=== PATIENT | male | born 2005 | race Caucasian/White ===

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

== ENCOUNTER 2023-01-13 05:44 | Day surgery (SDC) | payer MEDICAID, SELFPAY ==
[2023-01-10 11:45] VITALS: BMI 22.8
[2023-01-13] VITALS (11 sets, daily range): BP systolic 94–126; BP diastolic 50–74; PULSE 49–82; RESP 16–18; TEMP 36.3–36.6; O2SAT 97–100
--- OUTSIDE RECORDS SUMMARY | 2023-01-13 05:46 | XMS_ITS | Patient Health Record ---
Author Name Unknown Organization [facility] Address [address] [place] [address] Care Team Providers Care Assistant Clinical Director Name Role Phone Danial Amos Primary Care Provider ALLERGIES No Known Allergies REASON FOR REFERRAL No Information MEDICATIONS Medication SIG (Take, Route, Fr equency, Duration) Notes Start Date End Date Status oxyCODONE HCl 10 MG 1 tablet as needed O rally every 8 hrs for 2 days 12/07/2021 Active Peridex 0.12 % as directed Mouth/Th roat for 7 days 12/07/2021 Active SOCIAL HISTORY Sex Assigned At : Social History Observation Description Sex Assigned At Male PLAN OF TREATMENT No Information Insurance Providers Payer Name Payer Address Payer Phone Subscriber Number Group Number Insured Name Patient Relationship to Insured Coverage Start Date Coverage End Date [employer] [address] [address] [place] [phone] [id number] Darrel Mcrae Self - patient is the insured MEDICAL (GENERAL) HISTORY Medical History History ICD Code asthma
[2023-01-13] MEDS: sodium chloride 0.9% 1,000 ML 30 ML IV (06:07)
--- NOTE | 2023-01-13 07:00 | W.PM.OPSUD ---
Surgery/Procedure H&P Update DATE OF PROCEDURE: January 13, 2023 DATE H&P PERFORMED: 12/24/22 H&P UPDATE INFORMATION: I have reviewed H&P completed within last 30 days, I have examined patient prior to procedure and No changes to prior documentation PLANNED PROCEDURE: Operation Date: 01/13/23 07:00 Proposed Procedures p [id number] exicision of pilonidal cyst L05.01(Not Applicable) - Jose Javed DO
[2023-01-13] MEDS: ceFAZolin 2,000 MG in sodium chloride 0.9% (plus) 50 ML 100 MG IV (07:05)
[2023-01-13] MEDS: lidocaine-epi 2% 20 mL INJ INJECTION (07:38)
--- NOTE | 2023-01-13 07:57 | ANES.PREANE2 ---
Pre-Anesthetic Assessment Height/Weight: Height 1.75 m Weight 70.307 kg Temp Pulse Resp BP Pulse Ox O2 Del Method 97.6 F 53 L 17 126/70 99 Room Air 01/13/23 06:02 01/13/23 06:02 01/13/23 06:02 01/13/23 06:02 01/13/23 06:02 01/13/23 06:02 Operation Date: 01/13/23 07:00 Proposed Procedures p 61791 exicision of pilonidal cyst L05.01(Not Applicable) - Jose Javed DO Familial anesthetic complications: none Was Beta Blanche taken within 24 hours: N/A Was Clonidine taken within 24 hours: N/A Last intake: Intake Last Liquid Date 01/12/23 Last Liquid Time 20:00 Last Solid Date 01/12/23 Last Solid Time 18:00 Social No alcohol and No tobacco Exam alert, oriented x 3, clear to auscultation bilaterally and regular rate & rhythm Airway Submandibular: within normal limits Cervical ROM: within normal limits Mallampati: Class II Dentition: chipped Pulmonary Asthma Anesthetic Plan ASA status: 2 Anesthesia: General Medications/Allergies Home Medications Medication Instructions Recorded Confirmed Last Taken Type epinephrine 0.3 mg/0.3 mL 0.3 mg IM Q10M PRN Anaphylaxis 01/05/21 01/10/23 Unknown History injection, auto-injector fluticasone propionate 220 1 puff inhalation BID 01/05/21 01/13/23 01/13/23 History mcg/actuation HFA aerosol inhaler (Flovent HFA) albuterol 90 mcg/actuation aerosol 90 mcg inhalation PRN PRN Wheezing 11/11/22 01/13/23 01/13/23 History inhaler Allergies Allergy/AdvReac Type Severity Reaction Status Date / Time ketamine Allergy ADR-Halluci Verified 01/13/23 06:02 nating lactase [From Dairy Aid] Allergy ALGY-Rash Verified 01/13/23 06:02 Current Medications Generic Name Dose Route Start Last Admin Trade Name Freq PRN Reason Stop Dose Admin Sodium Chloride 1,000 mls @ 30 mls/hr 01/13/23 06:00 01/13/23 06:07 Sodium Chloride 0.9% IV 01/14/23 05:59 30 mls/hr .Q24H JEREMY Administration PFSH Anesthesia Medical History Exercise-induced asthma Hx of pilonidal cyst 11/11/22 Surgical History Fracture of right hand with surgery to fix this Family History Mother Lung disease Father Suicide Denies family history of Diabetes Clotting disorder Chronic kidney disease (CKD) Cancer Hypertension Stroke Social History Smoking and tobacco status: never smoked Second hand smoke exposure: No Data Anesthesia Cardiac Studies: No Data to Display
--- NOTE | 2023-01-13 08:20 | PM.OP ---
Operative Report Date of procedure: January 13, 2023 Pre-op diagnosis: Pilonidal cyst Post-op diagnosis: Complex pilonidal cyst Procedure done: Complex excision of pilonidal cyst Implants: Denise Specimens removed/disposition: Complex pilonidal cyst Surgeon: Dr. Jose Roberts DO Anesthesia: General Estimated blood loss (mL): 5 Complications: None apparent Brief History: This very pleasant 17-year-old gentleman who presents my office with a pilonidal cyst. It took multiple rounds of incision and drainage and antibiotics to get him ready for surgery. Pilonidal cyst excision was indicated. The risk and benefits were explained and documented. Procedure: The area was inspected prepped and draped in the usual sterile fashion. A timeout was performed. All present were in agreement. 2% lidocaine with epinephrine was used to anesthetize the area around the pilonidal cyst. A 9 cm elliptical excision was performed down to the sacrum. The anal sphincter was avoided. The pilonidal cyst was very large and complex. It extended to the left and additional 5 cm. An additional 5 cm ellipse was made left laterally and carried down through the subcutaneous tissue in order to encompass the entire pilonidal sinus and cyst. Specimen was removed en bloc and sent to pathology. Bovie cautery was used for hemostasis. 0 Vicryl was then used in interrupted fashion to approximate the fascia. Denise was placed down into the wound. 2-0 Vicryl was then used in interrupted fashion to approximate the dermis. Closure was complex required corner suturing and reapproximation. 3-0 nylon was used to close the skin in a vertical mattress interrupted fashion. The left lateral incision was closed with 3-0 nylon in a simple running fashion. Hemostasis was noted. Bacitracin and sterile dressing was applied. Patient tolerated the procedure well.
[2023-01-13] MEDS: oxyCODONE-APAP 5-325 mg Tablet 1.5 TAB PO (09:36)
--- NOTE | 2023-01-13 16:53 | ANE.PACU2 ---
Inpatient post-anesthesia follow up: Airway intact: Yes Vital signs: Temperature 97.9 F Pulse Rate 54 Respiratory Rate 18 Blood Pressure 100/74 Pulse Oximetry 98 Oxygen Delivery Me thod Room Air Oxygen Flow Rate Fraction of Inspir ed Oxygen Hydration adequate: Yes Nausea and vomiting: No Pain level: 2 Mental status: Baseline
== END 2023-01-13 09:50 | disposition home or self-care (01) ==
PROVIDERS: PCP Family Medicine; Visit Provider Surgery
PROC: (CPT 11770; principal; 2023-01-13 07:00)
DX: L05.91 Pilonidal cyst without abscess (principal); J45.990 Exercise induced bronchospasm; Z79.899 Other long term (current) drug therapy
CPT/HCPCS: 11770; 88304; J0690; J1100; J2405; J2704; J2710; J3010; J3490; J7030

== ENCOUNTER 2023-01-26 09:26 | Emergency (ER) | payer MEDICAID, SELFPAY ==
[2023-01-26 09:27] VITALS: BP 124/93; PULSE 81; O2SAT 100; BMI 21.5
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
[2023-01-26 09:50] LABS: Basophils % 0.6 %; Eosinophils # 0.1 10^3/uL (0.0-0.8); Eosinophils % 1.4 %; Hematocrit 45.6 % (37-53); Lymphocytes # 1.8 10^3/uL (1.5-6.5); Lymphocytes % 25.5 %; Mean Corpuscular HGB Conc 35.3 g/dL (30-55); Mean Corpuscular Hemoglobin 31.1 pg (27-33); Mean Corpuscular Volume 88.2 fl (82-101); Mean Platelet Volume 10.5 fL (7.4-10.4); Monocytes # 0.4 10^3/uL (0.2-0.9); Neutrophils # 4.67 10^3/uL (1.8-8.0); Neutrophils % 66.8 %; Nucleated Red Blood Cells % 0 %; Platelet Count 278 10^3/cmm (157-399); Red Blood Count 5.17 10^6/uL (3.85-5.65); Red Cell Distribution Width 12.2 % (12.1-15.1); White Blood Count 6.99 10^3/uL (4.5-13.0)
[2023-01-26 09:58] VITALS: BP 124/93; PULSE 72; RESP 18; O2SAT 100
--- NOTE | 2023-01-26 10:01 | PC.NURSE ---
WHILE PERFORMING NURSING ASSESSMENT AT 1001 ON 01/26/23 PT REPORTS BEING SI WITH NO PLAN. DR ENGLE NOTIFIED PENDING FURTHER ORDERS
[2023-01-26 10:16] LABS: Alanine Aminotransferase 15 U/L (0-41); Albumin Level 4.9 g/dL (3.5-5.2); Alkaline Phosphatase 72 U/L (40-130); Anion Gap 18.8 (5-19); Aspartate Amino Transferase 17 U/L (0-40); Blood Urea Nitrogen 9 mg/dL (6-20); Calcium 9.8 mg/dL (8.5-10.5); Carbon Dioxide 23 mmol/L (22-29); Chloride 103 mmol/L (98-107); Creatinine Clr Calc Pharmacy 119.3457; Globulin 2.6 g/dL (1.3-4.6); Glomerular Filtration Rate 96.3 mL/min (90-130); Glucose 112 mg/dL (65-115); Osmolality Calculated 291 mOsm/kg (285-295); Potassium 3.8 mmol/L (3.5-5.1); Sodium 141 mmol/L (136-145); Total Bilirubin 0.4 mg/dL (0.15-1.2); Total Protein 7.5 g/dL (6.6-8.7)
[2023-01-26] MEDS: iohexol 350 mg/mL 500 mL Btl (per mL) IV (10:18)
[2023-01-26] MEDS: ondansetron 2 mg/ML SDV 2 mL 4 MG IVP (10:27)
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
[2023-01-26 10:59] VITALS: BP 121/68; PULSE 61; RESP 15; O2SAT 100
[2023-01-26 11:15] VITALS: BP 121/68; PULSE 67; RESP 17; O2SAT 95
[2023-01-26] MEDS: tetanus-dipt-pertussis 0.5 mL SDV IM (11:17)
== END 2023-01-26 11:35 | disposition home or self-care (01) ==
PROVIDERS: Emergency Provider Family Medicine; PCP Family Medicine
DX: S61.202A Unspecified open wound of right middle finger without damage to nail, initial encounter (principal); M54.2 Cervicalgia; Z23 Encounter for immunization; V89.2XXA Person injured in unspecified motor-vehicle accident, traffic, initial encounter
CPT/HCPCS: 36415; 70450; 71260; 72125; 73130; 74177; 80053; 85025; 90471; 90715; 96374; 99285; J2405; Q9967

== ENCOUNTER → 2023-05-14 11:06 | Outpatient (BNVA) | payer MEDICAID, SELFPAY | PROVIDERS: PCP Family Medicine; Visit Provider Nurse Practitioner Family | DX: R05.9 Cough, unspecified (principal); J06.9 Acute upper respiratory infection, unspecified | CPT/HCPCS: 87400; 87426 ==